=== PATIENT | female | born 1970 | race Caucasian/White ===

== ENCOUNTER 2016-08-06 17:58 | Inpatient (IN) | payer BC ==
[~2016-08-06] VITALS: Ht 160 cm; Wt 63.5 kg
[2016-08-06 18:00] VITALS: PULSE 92; RESP 19; TEMP 98.2; O2SAT 99
--- NOTE | 2016-08-06 18:00 | NUR ---
BROUGHT BACK TO BED #6 AND TRIAGED. REPORT GIVEN TO FABIÁN
--- NOTE | 2016-08-06 18:31 | NUR ---
ER at bedside examining patient.
--- NOTE | 2016-08-06 18:31 | NUR ---
Placed in room 6 . Placed on monitoring manager, blood pressure machine and pulse oximeter. To gown for exam. Side rails up.
--- NOTE | 2016-08-06 18:35 | NUR ---
pt brought to ED by her daughter,pt fell this morning 3am hit her back of head on tiles. pt has multiple fall recently. pt on pain management. pt is awake,alert,oriented x4.no neuro deficit.c/o head pain and back pain.no resp distress,skin warm intact.will continue monitor patients.
--- NOTE | 2016-08-06 18:47 | NUR ---
# 20 gauge angiocath placed to left hand. Use of asceptic technique. Opsite placed over site. Blood return noted. . Flushed with 10 cc of normal saline. No evidence of infiltration noted. Patient tolerated well.
--- NOTE | 2016-08-06 19:08 | NUR ---
report given to night patrol inspector agnieszka CASTRO
--- NOTE | 2016-08-06 19:23 | NUR ---
Received patient alert and oriented x 2-3 with periods of forgetfulness. Daughter at bedside. Denies pain or discomfort at this time. Breathing even and unlabored. No acute distress or SOB noted. Will continue to monitor.
[2016-08-06 19:32] LABS: BASOPHILS % (AUTO) 0.7 % (0.0-2.0); EOSINOPHILS # (AUTO) 0.3 K/uL (0.0-0.4); EOSINOPHILS % (AUTO) 5.1 % (0.0-4.0); HEMATOCRIT 40.3 % (36-48); HEMOGLOBIN 13.2 g/dL (12.0-16.0); LYMPHOCYTES # (AUTO) 1.8 K/uL (1.0-5.5); LYMPHOCYTES % (AUTO) 27.7 % (20.5-51.5); MEAN CORPUSCULAR HEMOGLOBIN 35 pg (27-31); MEAN CORPUSCULAR HGB CONC 33 % (32-36); MEAN CORPUSCULAR VOLUME 106 fL (79.0-98.0); MONOCYTES # (AUTO) 0.5 K/uL (0.0-1.0); MONOCYTES % (AUTO) 7.5 % (1.7-9.3); NEUTROPHILS # (AUTO) 3.8 K/uL (1.8-7.7); PLATELET COUNT (AUTO) 142 K/uL (130-430); RED BLOOD CELL COUNT(AUTO) 3.79 MIL/uL (4.2-6.2); RED CELL DISTRIBUTION WIDTH 12.7 % (9.0-15.0); WHITE BLOOD COUNT (AUTO) 6.4 K/uL (4.8-10.8)
[2016-08-06 19:34] LABS: CALCIUM 8.2 mg/dL (8.4-11.0); CREATININE 0.75 mg/dL (0.55-1.30)
[2016-08-06 19:38] LABS: POTASSIUM 2.7 mmol/L (3.5-5.1)
[2016-08-06 19:40] LABS: INR 1.2 (0.8-1.2); PROTHROMBIN TIME 13.1 SECS (9.5-12.5); TOTAL BILIRUBIN 0.6 mg/dL (0.0-1.0)
[2016-08-06 19:41] LABS: ALBUMIN 3.4 g/dL (3.4-4.8); TOTAL PROTEIN, SERUM 6.5 g/dL (6.4-8.3)
[2016-08-06 20:04] LABS: BENZODIAZEPINE, URINE POSITIVE (NEG <=150); URINE OXYCODONE SCREEN POSITIVE (NEG <=100)
[2016-08-06 20:05] LABS: BARBITURATE, URINE NEGATIVE (NEG <=200); CANNABINOID, URINE NEGATIVE (NEG <=50); COCAINE, URINE NEGATIVE (NEG <=150); METHAMPHETAMINES SCREEN,URINE NEGATIVE (NEG <=500); OPIATE, URINE NEGATIVE (NEG <=100); PHENCYCLIDINE SCREEN,URINE NEGATIVE (NEG <=25); UR TRICYCLIC ANTIDEPRESSANTS NEGATIVE (NEG <=300); URINE AMPHETAMINE NEGATIVE (NEG <=500); URINE METHADONE NEGATIVE (NEG <=200); URINE PROPOXYPHENE SCREEN NEGATIVE (NEG <=300)
[2016-08-06] MEDS ORDERED: KCL 40mEq in D5/0.45NS 1000 mL 1,000 ML IV ONE (21:30)
[2016-08-06] MEDS ORDERED: ZOLOFT PO (22:05)
[2016-08-06] MEDS ORDERED: CYMBALTA PO (22:05)
[2016-08-06] MEDS ORDERED: LANS30CA10 PO (22:06)
[2016-08-06] MEDS ORDERED: ONDA4TAB5 PO (22:07)
[2016-08-06] MEDS ORDERED: [UNRECOGNIZED DRUG - CODE] PO (22:07)
[2016-08-06] MEDS ORDERED: MULT PO (22:08)
[2016-08-06] MEDS ORDERED: CHOL500037 PO (22:08)
[2016-08-06] MEDS ORDERED: KCL 40 mEq in 100 mL (PREMIX) 100 ML IV ONE (23:15)
[2016-08-06] MEDS: D5/0.45 NS 1,000 ML IV SCH (23:15)
--- NOTE | 2016-08-06 23:30 | NUR ---
Patient will be admitted under the care of Dr. Thao. Admitted to Telemetry unit. Will go to room 121A. Belongings list completed. Summary report printed. Report will given to GLORIA Lucero at bedside.
--- NOTE | 2016-08-06 23:35 | NUR ---
INITIAL NOTES -Pt arrived from ER dept via a gurney assisting by Alisson-Nurse to room 121-A,inpatient telemetry. Daughter and son are with her. -Pt is a/o3,episode of forgetfulness. Pt is c/o throbbing pain 10 out 10 of head radiating to left side of body s/p fall at home. IVF D5 1/2NS + 40 MEq KLC infusing. IV site of left f/a #20,patent,no s/s any infiltration noted. Generalized weakness noted. Discussed poc, all safety measures, also instructed not to get out bed to use call light for assistance, pt verbalized understanding. Skin intact. Left side of body redness noted. Seizure precaution in place. Fall precaution in place. Bed alarm in place, low position, side rails x3. Places near Nurses' station. Call light /win reach. Continue to monitor pt.
--- NOTE | 2016-08-06 23:35 | NUR ---
ADMISSION NOTE Received patient from ER via gurney. Patient admitted with diagnosis of . Patient is awake, alert, oriented X 2-3. Patient oriented to hospital room, call light, toileting, pain management and safety-teach back done. Patient informed that Jazmine will be her nurse and that their room number is 121A. Personal belongings checked and Belongings List documented. Call light within reach.
[2016-08-06 23:36] VITALS: BP 128/73; PULSE 78; RESP 18; TEMP 98.2; O2SAT 99
--- NOTE | 2016-08-06 23:47 | NUR ---
CONSULTATION PAGED REASON FOR CONSULTATION:ABD WAS CONSULT CALLED?Y PERSON WHO WAS NOTIFIED:MAG CONSULTING PHYSICIAN:WONG GUILLAUME SPANISH LANGUAGE LECTURER SPECIALTY:GI SPANISH LANGUAGE LECTURER PHONE NUMBER:[phone]
--- NOTE | 2016-08-06 23:49 | NUR ---
CONSULTATION PAGED REASON FOR CONSULTATION:ALTERED MENTAL STATUS WAS CONSULT CALLED?Y PERSON WHO WAS NOTIFIED:CARMEN CONSULTING PHYSICIAN:ISMA SPENCER (ELA CHAMBERS VETERINARIAN POULTRY) TURNER AND FORMER AUTOMATIC SPECIALTY:NEURO TURNER AND FORMER AUTOMATIC PHONE NUMBER:[phone]
[2016-08-07 00:08] VITALS: BP_SYST 128; BP_DIAS 73; BP_DIAS 77; PULSE 78; PULSE 89; RESP 18; RESP 20; TEMP 103.2; TEMP 98.2; O2SAT 97; O2SAT 99
[2016-08-07] MEDS: traMADol HCL HCL 50 MG TABLET (ULTRAM) PO PRN ×4 (00:37→20:59)
--- NOTE | 2016-08-07 00:37 | NUR ---
PAIN MEDICATION GIVEN -Pt is c/o 10 out 10 throbbing pain of headache radiating to left side of body s/p fall. Gave Ultram 50mg po. See EMAR for pain reassessment. Call light /win reach. Continue to monitor pt.
--- NOTE | 2016-08-07 00:38 | NUR ---
CONSULTATION PAGED REASON FOR CONSULTATION:STATUS POST FALL WAS CONSULT CALLED?Y PERSON WHO WAS NOTIFIED:CARMEN CONSULTING PHYSICIAN:SHAWN SAENZ (JESUS CASTANO WOODWORKING MACHINE OFFBEARER) CERTIFIED WELDER SPECIALTY:ORTHO CERTIFIED WELDER PHONE NUMBER:[phone]
[2016-08-07] MEDS: KCL 20 mEq in 100 mL (PREMIX) 100 ML IV SCH ×3 (00:49→02:30)
--- NOTE | 2016-08-07 01:06 | NUR ---
,N IS AT BEDSIDE -Notified Dr. Thao regarding pt is c/o blurred vision, throbbing 10 out 10 pain of headache radiating to left side of body s/p fall. Dr. Thao stated,''I already ordered Dr. Aguilera for consult.''
[2016-08-07] MEDS ORDERED: ONDANSETRON HCL 4 MG/2 ML VIAL IVP PRN (01:15)
--- NOTE | 2016-08-07 01:37 | NUR ---
ROUNDS; Pt is resting. No s/s any pain,sob,or any acute distress. K-Darius infusing. No s/s any IV infiltration noted. Bed alarm in place, low position, side rails x3. Call light w/in reach. Continue to monitor pt.
[2016-08-07 04:46] VITALS: BP 100/65; PULSE 73; RESP 18; TEMP 98.3; O2SAT 100
--- NOTE | 2016-08-07 04:52 | NUR ---
ROUNDS; Pt is resting. Pt denies any pain,sob,or any acute distress. K-Darius is still infusing. No s/s any IV infiltration noted. Bed alarm in place, low position, side rails x3. Call light w/in reach. Continue to monitor pt.
--- NOTE | 2016-08-07 06:46 | NUR ---
CLOSING NOTES -Pt is resting in bed. No s/s any pain,sob,or any acute distress noted. IVF D5 1/2NS + 40 MEq KLC infusing. IV site of left f/a #20,patent,no s/s any infiltration noted. . Seizure precaution in place. No seizure activity noted entire shift. Fall precaution in place. Bed alarm in place, low position, side rails x3. Places near Nurses' station. Call light /win reach. Will endorse to oncoming nurse to continue care.
[2016-08-07 07:03] LABS: BASOPHILS % (AUTO) 0.5 % (0.0-2.0); EOSINOPHILS # (AUTO) 0.6 K/uL (0.0-0.4); EOSINOPHILS % (AUTO) 12.2 % (0.0-4.0); HEMATOCRIT 37.4 % (36-48); HEMOGLOBIN 12.3 g/dL (12.0-16.0); LYMPHOCYTES # (AUTO) 1.6 K/uL (1.0-5.5); LYMPHOCYTES % (AUTO) 30.8 % (20.5-51.5); MEAN CORPUSCULAR HEMOGLOBIN 35 pg (27-31); MEAN CORPUSCULAR HGB CONC 33 % (32-36); MEAN CORPUSCULAR VOLUME 106 fL (79.0-98.0); MONOCYTES # (AUTO) 0.5 K/uL (0.0-1.0); MONOCYTES % (AUTO) 10.1 % (1.7-9.3); NEUTROPHILS # (AUTO) 2.6 K/uL (1.8-7.7); NEUTROPHILS % (AUTO) 46.4 % (40.0-70.0); PLATELET COUNT (AUTO) 120 K/uL (130-430); RED BLOOD CELL COUNT(AUTO) 3.54 MIL/uL (4.2-6.2); RED CELL DISTRIBUTION WIDTH 12.8 % (9.0-15.0); WHITE BLOOD COUNT (AUTO) 5.3 K/uL (4.8-10.8)
[2016-08-07 07:04] LABS: CALCIUM 8.1 mg/dL (8.4-11.0); CREATININE 0.69 mg/dL (0.55-1.30); POTASSIUM 3.3 mmol/L (3.5-5.1)
--- NOTE | 2016-08-07 07:10 | NUR ---
SLEEPING RESPIRATIONS EVEN/UNLABORED...WILL CONT TO MONITOR
--- NOTE | 2016-08-07 08:54 | NUR ---
DR RUSSELL AT BEDSIDE Addendum: 08/07/16 at 1038 by Freda Cary LVN DR ALBERTO AT [facility], NOT [facility]
[2016-08-07] MEDS: D5/0.45 NS 1,000 ML IV SCH (09:00)
[2016-08-07] MEDS ORDERED: cefTRIAXone 1 GM VIAL IV SCH (09:00)
--- NOTE | 2016-08-07 09:06 | NUR ---
Nutrition Update Chandu Scale 15 noted. Pt admitted for altered mental status. Diet: clear liquid BMI: 24.8 kg/m2 RD to follow per nutrition care standards.
--- NOTE | 2016-08-07 09:09 | NUR ---
PT SITTING UP IN BED, TOLERATING CLEAR LIQUIDS
[2016-08-07] MEDS: CEFTRIAXONE SOD 1 GM/ D5W 50 ML IV SCH ×2 (09:23)
[2016-08-07] MEDS ORDERED: levETIRAcetam 500 MG TABLET PO ONE (09:30)
[2016-08-07 09:43] LABS: THYROID STIMULATING HORMONE 1.49 uIu/mL (0.34-4.82)
--- NOTE | 2016-08-07 10:35 | NUR ---
ASSISTED PT TO RESTROOM PT AMBULATED TO RESTROOM...PT A BIT UNSTEADY WHEN AMBULATING
--- NOTE | 2016-08-07 10:37 | NUR ---
DR BLANK AT BEDSIDE
--- NOTE | 2016-08-07 10:59 | NUR ---
RECEIVED ORDERS FROM DR PERSON FOR EGD, PT, PTT, INR, HCG, AND TO BE NPO...PT DOES NOT WANT EGD... WILL PAGE DR PERSON TO INFORM HIM OF PTS REFUSAL...WILL NOT ENTER ORDERS UNTIL DR PERSON INFORMED OF REFUSAL
--- NOTE | 2016-08-07 12:01 | NUR ---
PT REFUSED UPPER GI SERIES
--- NOTE | 2016-08-07 12:02 | NUR ---
ASSISTED PT TO RESTROOM
--- NOTE | 2016-08-07 12:25 | NUR ---
DR REMY HU..PT JUST INFORMED MILL HELPER THAT SHE IS CLAUSTROPHOBIC
--- NOTE | 2016-08-07 12:30 | NUR ---
DR BLANK PAGED PT REQUESTING PAIN MEDICATION, PRIOR TO MRI
--- NOTE | 2016-08-07 12:35 | NUR ---
DR ALBERTO CALLED BACK GAVE ATIVAN IVP X1 PRIOR TO MRI
[2016-08-07 12:36] VITALS: BP 96/58; PULSE 65; RESP 16; TEMP 98.3; O2SAT 100
[2016-08-07] MEDS ORDERED: LORazepam 2 MG/ML VIAL IVP ONE (12:45)
[2016-08-07] MEDS ORDERED: GADOPENTETATE DIMEGLUMINE 15 ML VIAL IV ONE (12:55)
--- NOTE | 2016-08-07 13:12 | NUR ---
TRANSPORTED TO MRI VIA
--- NOTE | 2016-08-07 14:13 | NUR ---
PT BACK FROM MRI PT BACK IN BED...FAMILY AT BEDSIDE...WILL CONT TO MONITOR
--- NOTE | 2016-08-07 15:24 | NUR ---
DR PERSON AT BEDSIDE
[2016-08-07 16:11] VITALS: BP 118/75; PULSE 54; RESP 16; TEMP 97.6; O2SAT 100
[2016-08-07 16:30] LABS: HCG,QUANTITATIVE 0 mIU/ML (0-6); LIPASE 33 U/L (73-393)
--- NOTE | 2016-08-07 18:00 | NUR ---
ASSISTED PT TO RESTROOM
--- NOTE | 2016-08-07 18:21 | NUR ---
RESTING PT WITH EYES CLOSED...FRIEND AT BEDSIDE...PT NPO FOR ULTRASOUND LATER THIS EVENING...WILL CONT TO MONITOR
[2016-08-07 18:45] VITALS: BP 116/70; PULSE 58; RESP 16; TEMP 97.4; O2SAT 100
--- NOTE | 2016-08-07 18:45 | NUR ---
NOTES RECEIVED THE PT FROM THE DAY NURSE ,PT AWAKEN BY THE SEPTIC TANK SERVICE TECHNICIAN.WILL DO THE ULTRASOUND NOW IN THE ROOM.,MONITOR IN PLACE AND SHOWS SR IV INTACT TO LT AC.NO REDNESS OR SWELLING NOTED.PT ALERTX3 FORGETFUL AT TIMES,CALL LIGHT WITHIN REACH,SAFETY MEASURES IN PROGRESS.CONTINUE TO MONITOR.
--- NOTE | 2016-08-07 19:51 | NUR ---
NOTES ASSISTED UP TO THE BATHROOM,UA SENT TO THE LAB.
[2016-08-07 20:14] LABS: BILIRUBIN,URINE NEGATIVE (NEGATIVE); BLOOD, URINE NEGATIVE (NEGATIVE); CLARITY/URINE CLEAR (CLEAR); COLOR,URINE YELLOW (YELLOW); GLUCOSE,URINE NEGATIVE (NEGATIVE); KETONES,URINE NEGATIVE (NEGATIVE); LEUKOCYTE ESTERASE ,URINE NEGATIVE (NEGATIVE); NITRITE, URINE NEGATIVE (NEGATIVE); PH,URINE 7.5 (5.0-8.0); PROTEIN URINE NEGATIVE (NEGATIVE); UROBILINOGEN,URINE 0.2 (0.2-1.0)
[2016-08-07 20:28] LABS: BACTERIA,URINE FEW /HPF (None Seen); MUCUS,URINE None Seen /LPF (None Seen); RBC,URINE NONE SEEN /HPF (0-3)
--- NOTE | 2016-08-07 20:36 | NUR ---
NOTES PT C/O BACK PAIN ,WILL MEDICATE ORDERED.
--- NOTE | 2016-08-07 20:37 | NUR ---
NOTES SEIZURE PADS FALLING OFF THE BED,NEW PADS APPLIED.NO SEIZURE ACTIVITY NOTED.
[2016-08-07] MEDS: levETIRAcetam 500 MG TABLET PO SCH (20:58)
--- NOTE | 2016-08-07 21:45 | NUR ---
NOTES PT RESTING WITH EYES CLOSED.CALL LIGHT WITHIN REACH.CONTINUE TO MONITOR.
--- NOTE | 2016-08-07 23:13 | NUR ---
AWAKE ALERT ASKING FOR A SLEEPING PILL ,CALL PLACED TO DR SWEET.
--- NOTE | 2016-08-07 23:18 | NUR ---
NOTES DR BLANK WAS CALLED WHO IS TAKING CARE OF THE PT.
[2016-08-07 23:58] VITALS: BP 118/79; PULSE 60; RESP 18; TEMP 98.2; O2SAT 98
[2016-08-08] MEDS ORDERED: ZOLPIDEM TARTRATE 5 MG TABLET PO ONE (00:21)
--- NOTE | 2016-08-08 01:16 | NUR ---
NOTES PT SLEEPING,NO DISTRESS NOTED.CONTINUE TO MONITOR.
[2016-08-08] MEDS: D5/0.45 NS 1,000 ML IV SCH ×3 (03:00→22:20)
--- NOTE | 2016-08-08 03:30 | NUR ---
REMAINS ASLEEP.CONTINUE TO MONITOR.
[2016-08-08 04:16] VITALS: BP 107/73; PULSE 57; RESP 18; TEMP 98; O2SAT 99
--- NOTE | 2016-08-08 04:58 | NUR ---
BLOOD DRAWN BY THE HAIR ASSISTANT.
--- NOTE | 2016-08-08 05:38 | NUR ---
NOTES PT REMAINS ASLEEP.NO DISTRESS NOTED,CALL LIGHT WITHIN REACH.CONTINUE TO MONITOR.
--- NOTE | 2016-08-08 06:03 | NUR ---
CLOSING NOTES PT RESTING WITH EYES CLOSED.WILL ENDORSE THE CARE OF THE PT TO THE DAY NURSE.
--- NOTE | 2016-08-08 06:30 | NUR ---
nrsg: NRSG: RECEIVED PATIENT FROM NIGHT JOSEP LEE, AWAKE,ALERT AND ORIENTED X4. RESPIRATION EVEN AND UNLABORED. LUNGS CLEAR BILATERAL. ABDOMEN SOFT WITH BOWEL X 4 QUADRANTS. REMAINS NPO FOR TEST . NO PAIN AT THIS TIME. IV SITE ON ANTECUBITAL INTACT AND INPLACED AND IVF ON PROGRESS. NO S/S OF INFILTRATION. ON HER SIDE AND CALL LIGHT WITHIN REACH.
[2016-08-08 06:49] LABS: ALBUMIN 2.7 g/dL (3.4-4.8); BILIRUBIN,DIRECT 0.3 mg/dL (0.0-0.3); TOTAL BILIRUBIN 0.8 mg/dL (0.0-1.0); TOTAL PROTEIN, SERUM 5.3 g/dL (6.4-8.3)
--- NOTE | 2016-08-08 07:30 | NUR ---
RADIOLOGY: GAVE A CALL REGARDING UGI WITH GASTROGRAFFIN -STATED DOES NOT NEED A CONSENT BUT SHOULD BE NPO. WILL CALL AGAIN WHEN THE TEST TO BE DONE.
--- NOTE | 2016-08-08 07:40 | NUR ---
: GAVE A CALL TO DR. BLANK REGARDING IV MEDS. SINCE PATIENT IS NPO. WAITING FOR THE RETURN CALL.
[2016-08-08 08:00] VITALS: BP 116/70; PULSE 59; RESP 18; TEMP 97.7; O2SAT 99
--- NOTE | 2016-08-08 08:00 | NUR ---
ROUNDS: SEEN BY DR. GOSS.
--- NOTE | 2016-08-08 08:07 | NUR ---
UGI: WENT FOR UGI WITH GASTROGRAFFIN BY WHEELCHAIR, ACCOMPANIED BY TECH.
[2016-08-08] MEDS ORDERED: GASTROGRAFIN 120 ML ONE (08:41)
--- NOTE | 2016-08-08 09:30 | NUR ---
POST TEST; [place] [facility] [place] ,CLEAR LIQUIDS OFFERED.
[2016-08-08] MEDS: levETIRAcetam 500 MG TABLET PO SCH ×2 (09:38→21:44)
[2016-08-08] MEDS: PANTOPRAZOLE SODIUM 40 MG TAB PO SCH (09:39)
[2016-08-08] MEDS: traMADol HCL HCL 50 MG TABLET (ULTRAM) PO PRN ×3 (09:40→21:45)
[2016-08-08] MEDS: CEFTRIAXONE SOD 1 GM/ D5W 50 ML IV SCH ×4 (10:01→10:02)
--- NOTE | 2016-08-08 10:04 | NUR ---
BRP: ASSISTED TO TOILET ,GAIT STEADY AND BACK TO BED AFTER.. CALL LIGHT WITHIN REACH.
--- NOTE | 2016-08-08 10:54 | NUR ---
MST: PATIENT DOWNGRADE FROM TELE TO MED/SURG. ORDERED.
[2016-08-08] MEDS ORDERED: LORazepam 1 MG TABLET PO PRN (11:00)
[2016-08-08 12:00] VITALS: BP 104/67; PULSE 60; RESP 21; TEMP 98.3; O2SAT 100
--- NOTE | 2016-08-08 12:00 | NUR ---
ACTIVITY: RESTING ON BED AND WATCHING TV. SON AT THE BEDSIDE AND UPDATED. CALL LIGHT WITHIN REACH. NO PAIN.
--- NOTE | 2016-08-08 14:30 | NUR ---
MRI: CRIPPLE CUTTER CALLED AND SAID TO DO THE MRI THAT WAS NOT DONE FROM YESTERDAY AND SHE WILL DO IT TODAY BUT PATIENT NEEDS IV MEDS,. TO MAKE HER RELAX AND DR. BLANK WAS PAGED. WAITING FOR THE RETURN CALL.
--- NOTE | 2016-08-08 14:45 | NUR ---
MRI: CREDIT REVIEW ANALYST (AJ) CALLED AND SAID SHE WILL DO THE MRI.
--- NOTE | 2016-08-08 15:18 | NUR ---
Dr Jose olmos
--- NOTE | 2016-08-08 15:22 | NUR ---
IV: INSERTED ANOTHER SITE OF IV ON THE RIGHT FOREARM GAUGE 22 INTACT AND INPLACED AND IVF CONNECTED.
--- NOTE | 2016-08-08 15:30 | NUR ---
ROUNDS: SEEN BY DR. BLANK AND REMINDED REGARDING IV MEDS. ORDER PRIOR TO MRI.
[2016-08-08 15:36] VITALS: BP 108/74; PULSE 61; RESP 19; TEMP 97.3; O2SAT 100
--- NOTE | 2016-08-08 16:00 | NUR ---
: DR. BLANK WAS REMINDED AGAIN 2-3 TIMES WHILE IN NURSES STATION BUT STILL DID NOT ORDER .
--- NOTE | 2016-08-08 16:40 | NUR ---
: DR. BLANK REMINDED AGAIN ABOUT IV MEDS PRIOR TO MRI , NO ORDER STILL.
--- NOTE | 2016-08-08 18:50 | NUR ---
CLOSING: RESTING ON BED WITH IVF ON PROGRESS. IV SITE INTACT AND INPLACED AND NO S/S OF INFILTRATION,AWKEAND ALERT. NO SZ ACTIVITY.
[2016-08-08 20:00] VITALS: BP 125/79; PULSE 62; RESP 16; TEMP 99; O2SAT 100
--- NOTE | 2016-08-08 20:00 | NUR ---
Rounds Received patient lying in bed resting, denies of any pain, no acute distress noted. IV site intact and patent, IV fluid infusing well. Instructed patient to call nurse when getting out of bed, call light within reach. family at the bedside.
--- NOTE | 2016-08-08 21:54 | NUR ---
PAGED PAGED MARIANNA HA AT [phone] SPOKE WITH DAVID.
[2016-08-08] MEDS: ZOLPIDEM TARTRATE 5 MG TABLET PO PRN (22:16)
--- NOTE | 2016-08-08 22:45 | NUR ---
Rounds CLINICAL NURSING PROFESSOR assisted patient to go to the bathroom and back to bed with supervise assistance unsteady gait noted. Pain medication given earlier with effective result noted.
[2016-08-09] VITALS: BP 123/77; PULSE 54; RESP 18; TEMP 98.1; O2SAT 97
[2016-08-09 00:01] VITALS: BP_SYST 107; BP_SYST 94; BP_DIAS 59; BP_DIAS 71; PULSE 56; RESP 16; TEMP 100; O2SAT 100
--- NOTE | 2016-08-09 00:45 | NUR ---
Rounds Patient resting quietly, no s/s of any pain, no acute distress noted, call light within reach.
--- NOTE | 2016-08-09 01:24 | NUR ---
CONSULTATION FOLLOW-UP REASON FOR CONSULTATION:S/P FALL WAS CONSULT CALLED?Y PERSON WHO WAS NOTIFIED:MEE CONSULTING PHYSICIAN:SHAWN SAENZ(JOAQUINA HERRERA JAW SKINNER) MELANGEUR OPERATOR SPECIALTY:ORTHOPEDIC SURGEON MELANGEUR OPERATOR PHONE NUMBER:[phone]
--- NOTE | 2016-08-09 02:50 | NUR ---
Rounds Patient resting quietly, no s/s of any pain, no acute distress noted, call light within reach.
[2016-08-09] MEDS: traMADol HCL HCL 50 MG TABLET (ULTRAM) PO PRN ×4 (03:14→21:38)
--- NOTE | 2016-08-09 04:23 | NUR ---
Rounds Patient resting quietly, no s/s of any pain, no acute distress noted, call light within reach.
--- NOTE | 2016-08-09 06:41 | NUR ---
Closing notes No other changes noted on patient current condition. No seizure activity noted.
--- NOTE | 2016-08-09 08:00 | NUR ---
initial notes rec patient awake alert, no periods of confusion at this time. ivf infusing well on the r forearm. no infiltration noted.denies pain at this time.bed in low position and side rails up and locked.call light within reached and knows when to call for assists.with direct observer in the room to prevent form falling.
[2016-08-09 08:01] VITALS: BP 117/73; PULSE 54; RESP 16; TEMP 96.7; O2SAT 100
[2016-08-09] MEDS: CEFTRIAXONE SOD 1 GM/ D5W 50 ML IV SCH ×2 (08:59)
[2016-08-09] MEDS: PANTOPRAZOLE SODIUM 40 MG TAB PO SCH (09:05)
[2016-08-09] MEDS: levETIRAcetam 500 MG TABLET PO SCH ×2 (09:05→21:38)
--- NOTE | 2016-08-09 10:00 | NUR ---
rounds due meds given as ordered and pain med. ambulates to the br at intervals with min assits and lillie well. sleeps at intervals as well.
[2016-08-09 11:56] VITALS: BP 107/66; PULSE 54; RESP 16; TEMP 98; O2SAT 98
--- NOTE | 2016-08-09 12:00 | NUR ---
rounds eating lunch and lillie well. no sob noted.
--- NOTE | 2016-08-09 14:00 | NUR ---
round patient sitting at the edge of the bed. no acute distress noted. calls for assistance to the br. no acute distress.
[2016-08-09 14:12] VITALS: Ht 160 cm; Wt 63.5 kg
[2016-08-09] MEDS: D5/0.45 NS 1,000 ML IV SCH (15:28)
[2016-08-09 16:00] VITALS: BP 120/82; PULSE 60; RESP 20; TEMP 98; O2SAT 100
--- NOTE | 2016-08-09 16:00 | NUR ---
rounds resting comfortably otherwise goes to the br and voiding freely. no acute distress.
--- NOTE | 2016-08-09 18:30 | NUR ---
closing notes denies pain at this time. family at bedside . stable needs attended. no sob noted. call light with reached.
[2016-08-09 19:10] VITALS: BP 112/76; PULSE 67; RESP 20; TEMP 98.9; O2SAT 99
--- NOTE | 2016-08-09 19:10 | NUR ---
Initial Notes Received pt in bed with mother at bedside. Pt is a/a/o x4. No s/s of any distress noted. IV noted to R f/a g 22, no infiltrate and with good blood return. Noted heat pad that patient brought from home at pt's back. All extremities are strong, BRP. Discussed plan of care with pt and verbalized understanding. Bed in low position with call light within reach. Will cont to monitor.
--- NOTE | 2016-08-09 21:10 | NUR ---
Rounds Pt is resting comfortably with mother at bedside. No s/s of any distress noted. Call light within reach. Will cont to monitor.
[2016-08-09] MEDS: ZOLPIDEM TARTRATE 5 MG TABLET PO PRN (21:38)
--- NOTE | 2016-08-09 23:10 | NUR ---
Rounds Patient is comfortably resting at this time. No s/s of any distress noted. Bed in low position with call light within reach. Will cont to monitor.
--- NOTE | 2016-08-10 01:10 | NUR ---
Assisted to b/r assisted to b/r and safely back to bed. No s/s of any distress noted. Left bed in low position with call light within reach. Will cont to monitor.
[2016-08-10] MEDS: traMADol HCL HCL 50 MG TABLET (ULTRAM) PO PRN ×3 (03:27→21:55)
[2016-08-10 04:00] VITALS: BP 111/73; PULSE 50; RESP 16; TEMP 97.4; O2SAT 100
--- NOTE | 2016-08-10 06:54 | NUR ---
Final Rounds Patient is resting at this time. No s/s of any pain noted. V/S are wnl. All needs met and anticipated by noc nurses. Bed in low position with side rails up x2 for safety. Endorsed
[2016-08-10 08:00] VITALS: BP 103/74; PULSE 55; RESP 21; TEMP 98; O2SAT 99
--- NOTE | 2016-08-10 08:00 | NUR ---
rounds rec patient awake alert with ivf infusing well on the r forearm . no infiltration noted. denies pain at this time.was moved to a different room bec unable to stand the noise form her current room. ambulates to the br and lillie well. bed in low position and side rails up and locked. fall/ safety measures reminded and understood. will continue to monitor patient.
[2016-08-10] MEDS: PANTOPRAZOLE SODIUM 40 MG TAB PO SCH (09:47)
[2016-08-10] MEDS: levETIRAcetam 500 MG TABLET PO SCH ×2 (09:47→21:55)
[2016-08-10] MEDS: CEFTRIAXONE SOD 1 GM/ D5W 50 ML IV SCH ×2 (09:47)
--- NOTE | 2016-08-10 10:00 | NUR ---
rounds asleep when rounds made. resting quietly. no sob noted.
--- NOTE | 2016-08-10 12:00 | NUR ---
rounds dr medrano came and dr benjamin and changed pt's diet. lillie full liquid . no nausea and vomiting noted.
[2016-08-10 12:34] VITALS: BP 103/69; PULSE 54; RESP 16; TEMP 98.6; O2SAT 98
--- NOTE | 2016-08-10 14:00 | NUR ---
rounds dr johnston was called and informed esbl of the urine and with orders.
[2016-08-10 16:39] VITALS: BP 106/63; PULSE 58; RESP 16; TEMP 98.8; O2SAT 98
[2016-08-10] MEDS: D5/0.45 NS 1,000 ML IV SCH ×2 (17:24→22:52)
[2016-08-10] MEDS: GENTAMICIN 120 MG/ ISO-OSM 100 ML PREMIX IV SCH (17:26)
--- NOTE | 2016-08-10 18:30 | NUR ---
closing notes pt ambulating at bedside and stated feel much better. no sob noted.
[2016-08-10 20:00] VITALS: BP 110/64; PULSE 52; RESP 16; TEMP 98.8; O2SAT 98
--- NOTE | 2016-08-10 20:12 | NUR ---
Rounds Received patient lying in bed resting, denies of any pain, no acute distress noted, no nausea or vomiting noted. IV site checked intact and patent, IV fluid infusing well. Instructed patient to call nurse when getting out of bed call light within reach.
--- NOTE | 2016-08-10 22:00 | NUR ---
Activity Patient ambulate in the hallway assisted by her Son with sightly steady gait noted.
--- NOTE | 2016-08-10 22:10 | NUR ---
Rounds Patient back to bed. Instructed patient to call nurse when need to go to the bathroom, call light within reach. bed alarm on.
[2016-08-10] MEDS: ZOLPIDEM TARTRATE 5 MG TABLET PO PRN (22:53)
[2016-08-11 01:15] VITALS: BP 91/56; PULSE 60; RESP 18; TEMP 97.6; O2SAT 98
--- NOTE | 2016-08-11 01:30 | NUR ---
Rounds Patient resting quietly call light within reach.
[2016-08-11] MEDS: traMADol HCL HCL 50 MG TABLET (ULTRAM) PO PRN ×4 (02:11→20:30)
[2016-08-11] MEDS: GENTAMICIN 120 MG/ ISO-OSM 100 ML PREMIX IV SCH ×2 (04:03→16:22)
[2016-08-11 04:36] VITALS: BP 85/51; PULSE 56; RESP 19; TEMP 96.8; O2SAT 99
--- NOTE | 2016-08-11 04:41 | NUR ---
CONSULT FOLLOW UP CALLED FOR FOLLOW UP CONSULT DOCTOR MONICA IS ONLINE JOURNALIST FOR [facility]. SPOKE WITH CARMEN. NOTIFIED THIS IS THE THIRD CALL.
--- NOTE | 2016-08-11 04:42 | NUR ---
Rounds Patient resting quietly call light within reach.
[2016-08-11 06:41] LABS: LYMPHOCYTES # (AUTO) 1.7 K/uL (1.0-5.5)
--- NOTE | 2016-08-11 06:49 | NUR ---
Closing notes Patient slept most of the night, no other changes noted on patient current condition.
[2016-08-11 06:58] LABS: ALBUMIN 2.6 g/dL (3.4-4.8); CALCIUM 8.1 mg/dL (8.4-11.0); CREATININE 0.68 mg/dL (0.55-1.30); POTASSIUM 3.3 mmol/L (3.5-5.1); TOTAL BILIRUBIN 0.4 mg/dL (0.0-1.0); TOTAL PROTEIN, SERUM 5.4 g/dL (6.4-8.3)
[2016-08-11 07:03] LABS: BASOPHILS % (AUTO) 0.7 % (0.0-2.0); EOSINOPHILS # (AUTO) 0.5 K/uL (0.0-0.4); EOSINOPHILS % (AUTO) 10.8 % (0.0-4.0); HEMATOCRIT 36.4 % (36-48); LYMPHOCYTES % (AUTO) 34.6 % (20.5-51.5); MEAN CORPUSCULAR HEMOGLOBIN 35 pg (27-31); MEAN CORPUSCULAR HGB CONC 33 % (32-36); MEAN CORPUSCULAR VOLUME 105 fL (79.0-98.0); MONOCYTES # (AUTO) 0.5 K/uL (0.0-1.0); MONOCYTES % (AUTO) 10.4 % (1.7-9.3); NEUTROPHILS # (AUTO) 2.1 K/uL (1.8-7.7); NEUTROPHILS % (AUTO) 43.5 % (40.0-70.0); PLATELET COUNT (AUTO) 102 K/uL (130-430); RED BLOOD CELL COUNT(AUTO) 3.46 MIL/uL (4.2-6.2); RED CELL DISTRIBUTION WIDTH 12.4 % (9.0-15.0); WHITE BLOOD COUNT (AUTO) 4.8 K/uL (4.8-10.8)
[2016-08-11 08:00] VITALS: BP 93/68; PULSE 62; RESP 18; TEMP 97.6; O2SAT 99
[2016-08-11] MEDS: PANTOPRAZOLE SODIUM 40 MG TAB PO SCH (08:50)
[2016-08-11] MEDS: levETIRAcetam 500 MG TABLET PO SCH ×2 (08:50→20:29)
[2016-08-11] MEDS: CEFTRIAXONE SOD 1 GM/ D5W 50 ML IV SCH ×2 (08:51)
[2016-08-11 09:01] LABS: ERYTHROCYTE SEDIMENTATION RATE 3 MM/HR (0-20)
[2016-08-11 11:41] VITALS: BP 104/74; PULSE 80; RESP 18; TEMP 97.2; O2SAT 98
--- NOTE | 2016-08-11 13:36 | NUR ---
DC PLANNING Discussed dc planning w Dr Garcia earlier today, states to order PT eval that may need SNF. Called [facility] PPO, ph [phone] opt6 dept per Tra Notes, to speak prince dowell to get list of contracted SNF's, home health, ambulance. Per [facility] client care representative Lia is assigned nurse cannot give me her # she would need to call me to give her ph #. Will put in note for Lia to return my call. Addendum: 08/11/16 at 1419 by Jackie Navarro RN Received msg from [facility] that Missy is assigned, ph [phone]. Called & spoke prince Louis informed plan for SNF vs Home Health, states will fax list of contracted SNF's & Home Health.
[2016-08-11 16:41] VITALS: BP 104/63; PULSE 56; RESP 18; TEMP 97.3; O2SAT 99
--- NOTE | 2016-08-11 19:48 | NUR ---
OPENING NOTE Pt. and bedside report received from day shift nurse. Pt. is AAO x 4 and resting in bed with daughter, Mikaela at bedside. IV fluids infusing as ordered to right f/a 22g, slight bruising noted but no other s/s of infiltration noted to site. Pt. requested jello. Plan of care and safety precautions discussed with pt., pt. requested for bed alarm to be off at this time so she can "rest her bottom" while her daughter is here. Encouraged pt. to use call light for needs. Also encouraged pt.'s daughter to call when pt. is back in bed resting. Seizure pads in place. Will continue to monitor.
[2016-08-11 19:58] VITALS: BP 98/60; PULSE 58; RESP 16; TEMP 97; O2SAT 100
[2016-08-11] MEDS: D5/0.45 NS 1,000 ML IV SCH (20:29)
--- NOTE | 2016-08-11 20:32 | NUR ---
DUE MEDS/PAIN/NAUSEA Due Keppra administered as ordered. Pt. c/o "08/30" pain to hip and back and nausea. Pt. medicated with Ultram PO and Zofran IVP as ordered PRN for moderate pain and nausea. Please see EMAR. Educated pt. regarding medication and s/e. Encouraged pt. to use call light for assistance. Bed alarm on. Will continue to monitor. Addendum: 08/11/16 at 2046 by Angela Julian RN DUE MEDS/PAIN/NAUSEA Due Keppra administered as ordered. Pt. c/o "12/30" pain to hip and back and nausea. Pt. medicated with Ultram PO and Zofran IVP as ordered PRN for *severe* pain and nausea. Please see EMAR. Educated pt. regarding medication and s/e. Encouraged pt. to use call light for assistance. Bed alarm on. Will continue to monitor.
[2016-08-12] MEDS: D5/0.45 NS 1,000 ML IV SCH ×2 (00:02→15:57)
[2016-08-12] MEDS: traMADol HCL HCL 50 MG TABLET (ULTRAM) PO PRN ×6 (00:37→22:55)
--- NOTE | 2016-08-12 00:38 | NUR ---
PAIN Pt. c/o pain "12/30" to lower back. Pt. given Ultram 50mg PO 1 tab as ordered PRN for severe pain. Educated pt. regarding medication and s/e. Pt. verbalized understanding. Encouraged pt. to use call light for needs. Bed alarm on. Will continue to monitor.
[2016-08-12 01:24] VITALS: BP 106/82; PULSE 62; RESP 18; TEMP 98.1; O2SAT 99
[2016-08-12 04:00] VITALS: BP 82/52; PULSE 86; RESP 18; TEMP 97.1; O2SAT 100
[2016-08-12] MEDS: GENTAMICIN 120 MG/ ISO-OSM 100 ML PREMIX IV SCH ×2 (05:06→15:56)
[2016-08-12 08:00] VITALS: BP 90/59; PULSE 77; RESP 17; TEMP 97.4; O2SAT 100
--- NOTE | 2016-08-12 08:00 | NUR ---
OPENING NOTE: RECEIVED REPORT FROM NIGHT NURSE. PATIENT IS RESTING COMFORTABLY IN BED. NO S/S OF DISTRESS OR SOB. PATIENT IS ALERT AND ORIENTED. VITAL SIGNS WNL, ASSESSMENT COMPLETE. IV IS PATENT AND INFUSING. CALL LIGHT IN REACH, BED IN LOWEST POSITION, AND WILL CONTINUE TO MONITOR.
[2016-08-12] MEDS: PANTOPRAZOLE SODIUM 40 MG TAB PO SCH (09:00)
[2016-08-12] MEDS: levETIRAcetam 500 MG TABLET PO SCH ×2 (09:00→21:48)
[2016-08-12] MEDS: CEFTRIAXONE SOD 1 GM/ D5W 50 ML IV SCH ×2 (09:03)
--- NOTE | 2016-08-12 10:00 | NUR ---
NOTE: PATIENT IS RESTING COMFORTABLY IN BED. NO S/S OF DISTRESS OR SOB. PATIENT IS ALERT AND ORIENTED. PATIENT HAS BEEN AMBULATING TO THE BATHROOM. CALL LIGHT IN REACH, BED IN LOWEST POSITION, AND WILL CONTINUE TO MONITOR.
[2016-08-12 11:38] VITALS: BP 96/58; PULSE 72; RESP 18; TEMP 97; O2SAT 100
--- NOTE | 2016-08-12 12:00 | NUR ---
NOTE: PATIENT IS RESTING COMFORTABLY IN BED. NO S/S OF DISTRESS OR SOB. PATIENT IS ALERT AND ORIENTED, ABLE TO EXPRESS NEEDS, AND ASK FOR ASSISTANCE. CALL LIGHT IN REACH, BED IN LOWEST POSITION, AND WILL CONTINUE TO MONITOR.
--- NOTE | 2016-08-12 14:00 | NUR ---
NOTE: PATIENT IS RESTING COMFORTABLY IN BED. NO S/S OF DISTRESS OR SOB. PATIENT PAIN HAS BEEN CONTROLLED WITH ULTRAM. PATIENT STATES PAIN MANAGEMENT IS WORKING. IV IS PATENT. CALL LIGHT IN REACH, BED IN LOWEST POSITION, AND WILL CONTINUE TO MONITOR.
--- NOTE | 2016-08-12 14:52 | NUR ---
Nutrition F/U Admitting Diagnosis Altered mental status Reviewed Pertinent Medical/Surgical Hx Patient Medical Record Medical History Comment: Pt also found w/ Syncope, possible seizures, unsteady gait; PMH: Gastric bypass. Subjective Information Pt seen resting in bed at time of RD visit. Pt reported that she is still only able to tolerate gelatin, cranberry juice, and water. She stated that she still has come N/V, but no D. Per MD notes, plans to continue IV Abx treatment. Per EMR, PO Intakes: 43% average x7 meals, x2 refusals. Active bowel sounds. I/O: 1690/0 (+1690 ml) per 12 hours. Pt is not yet meeting optimal nutritional needs. Pt declined nutrition education. Current Diet Order/Nutrition Support Clear liquid x5 days Patient/Significant Other Able To Verbalize Education Provided Not Indicated Pertinent Medications gentamicin/NaCl IV, zofran, D5%/NaCl IV at 60 ml/hr (245 kcal/day) Pertinent Labs Albumin 2.6 L, Serum Total Protein 5.4 L, RBC 3.46 L Height (Feet) 5 feet Height (Inches) 3.00 inches Weight (Pounds) 140 pounds (admission) BEDSCALE WT: 123.6 lb, 56 kg (08/12/16) -- RD calibrated bedscale to zero prior to weighing pt Weight (Calculated Kilograms) 63.883416 kilograms Patient Weight 63.503 kg Body Mass Index 24.80 kg/m2 Usual Weight 150 lbs %UBW 93 %IBW 122 [place]/Adjusted Body Weight 115 lbs, 52 kg Recent Weight Change Yes - 10 lbs in 1 week (per Pt report) Weight Status Appropriate Gastrointestinal Symptoms N/V Last BM August 12, 2016 x1 Usual Diet At Home Gelatin, water, and rice pudding (per pt since July 2015 Gastric bypass) Skin Integrity Comment: Chandu scale of 20. per nursing notes. Current % PO Negligible <25% Estimated Energy Expenditure (kcals/day) 1806-1263 kcal/day (25-30 kcal/kg CBW for maintenance) Estimated Protein Required (g/day) 64-96 gm Protein/day (1-1.5 gm Protein for muscle gain) Estimated Fluid Required (l/day) 1.6-1.9 L/day (1L/calorie for maintenance) Problem/Etiology/Signs/Symptoms (modified) Increased risk for malnutrition related to GI dysfunction as evidenced by Pt report of poor appetite, emesis after meals and diarrhea, and continual poor PO intakes. *ongoing Expected Outcomes/Goals Monitor pt appetite and food intake w/ goal of meeting 75% of estimated nutritional needs, Labs trending WNL, normal GI function, skin integrity/wt maintenance. Dietitian Recommendations * Recommend continuing clear liquid diet per MD * Consider TPN support if PO intakes do not improve within 7 days Follow Up High Risk: F/U in 2-3 days
--- NOTE | 2016-08-12 16:10 | NUR ---
PHYSICAL THERAPY CO-SIGN The Physical Therapy Progress Notes documented by Lang Interpreter have been reviewed. Reviewed/Co-Signed by: Gisselle Vasquez PT Documentation Done by: ELA DONALD PTA PT CONTINUES TO MAKE FUNCTIONAL GAINS TO REHAB GOALS SET. Addendum: 08/12/16 at 1611 by Gisselle Vasquez PT Amended: Links added.
[2016-08-12 17:30] VITALS: BP 98/55; PULSE 70; RESP 18; TEMP 97.1; O2SAT 99
--- NOTE | 2016-08-12 18:46 | NUR ---
CLOSING NOTE: PATIENT IS RESTING COMFORTABLY IN BED. NO S/S OF DISTRESS OR SOB. PATIENT IS ALERT AND ORIENTED, ABLE TO EXPRESS NEEDS, AND ASK FOR ASSISTANCE. CALL LIGHT IN REACH, BED IN LOWEST POSITION, AND WILL GIVE REPORT TO NIGHT NURSE.
--- NOTE | 2016-08-12 19:41 | NUR ---
OPENING NOTE Pt. is AAO x 4 and resting in bed. Assisted pt. to bathroom to void; pt.'s gait is steady with no c/o dizziness. IV fluids infusing as ordered to left f/a 22g. Pt.'s bed alarm went off and I had to remind pt. to use call light before getting OOB and pt. stated "sorry I forgot, they were letting me walk around earlier today." Plan of care discussed. Safety, fall, and isolation precautions in place. Encouraged pt. to use call light for needs. Will continue to monitor.
[2016-08-12 20:00] VITALS: BP 98/59; PULSE 78; RESP 18; TEMP 97.5; O2SAT 95
[2016-08-12] MEDS: ZOLPIDEM TARTRATE 5 MG TABLET PO PRN (22:54)
[2016-08-13] VITALS (7 sets, daily range): BP systolic 87–108; BP diastolic 57–79; PULSE 65–80; RESP 16–20; TEMP 96.4–98.2; O2SAT 91–100
--- NOTE | 2016-08-13 02:54 | NUR ---
ASSISTED TO BATHROOM Assisted pt. to bathroom to void; tolerated well with steady gait, no c/o dizziness. Will continue to monitor.
[2016-08-13] MEDS: GENTAMICIN 120 MG/ ISO-OSM 100 ML PREMIX IV SCH (03:00)
[2016-08-13] MEDS: traMADol HCL HCL 50 MG TABLET (ULTRAM) PO PRN ×2 (03:01→09:26)
--- NOTE | 2016-08-13 03:03 | NUR ---
PAIN Pt. c/o "12/30" pain; medicated with Ultram PO as ordered PRN for severe pain. See EMAR. Educated pt. re: med and s/e. Safety precautions in place. Will continue to monitor.
[2016-08-13] MEDS: D5/0.45 NS 1,000 ML IV SCH (04:47)
--- NOTE | 2016-08-13 07:51 | NUR ---
CLOSING NOTE All needs met throughout shift. Pt. is stable with no s/s of acute distress. Endorsed care to day shift nurse.
--- NOTE | 2016-08-13 08:00 | NUR ---
OPENING NOTE: RECEIVED REPORT FROM NIGHT NURSE. PATIENT IS RESTING COMFORTABLY IN BED. NO S/S OF DISTRESS OR SOB. PATIENT IS AWAKE AND ALERT. IV IS PATENT AND INFUSING. VITAL SIGNS WNL, ASSESSMENT COMPLETE. ISOLATION PRECAUTIONS IN PLACE. CALL LIGHT IN REACH, BED IN LOWEST POSITION, BED ALARM IS ON, AND WILL CONTINUE TO MONITOR.
[2016-08-13] MEDS: CEFTRIAXONE SOD 1 GM/ D5W 50 ML IV SCH ×2 (09:25)
[2016-08-13] MEDS: levETIRAcetam 500 MG TABLET PO SCH (09:26)
[2016-08-13] MEDS: PANTOPRAZOLE SODIUM 40 MG TAB PO SCH (09:26)
--- NOTE | 2016-08-13 10:00 | NUR ---
NOTE: PATIENT IS RESTING COMFORTABLY IN BED. NO S/S OF DISTRESS OR SOB. PATIENT IS ALERT AND ORIENTED. IV IS PATENT. PATIENT AMBULATED. CALL LIGHT IN REACH, BED IN LOWEST POSITION, AND WILL CONTINUE TO MONITOR.
--- NOTE | 2016-08-13 10:03 | NUR ---
DISCHARGE PLANNING Contracted [facility]F list: [facility], [facility], [facility], [facility], [facility], [facility], [facility]. Contracted home health: [facility], [facility], [facility]
--- NOTE | 2016-08-13 12:00 | NUR ---
Note: Patient is resting comfortably in bed. No s/s of distress or sob. Patient is alert and oriented, able to express needs, and ask for assistance. Call light in reach, bed in lowest position, and will continue to monitor.
--- NOTE | 2016-08-13 14:00 | NUR ---
Note: Patient is resting comfortably in bed. No s/s of distress or sob. Patient's daughter, Mikaela, was called to inform of discharge order. Patient is alert and oriented. Call light in reach, bed in lowest position, and will continue to monitor.
--- NOTE | 2016-08-13 15:24 | NUR ---
PHYSICAL THERAPY CO-SIGN The Physical Therapy Progress Notes documented by Regional Business Manager have been reviewed. Reviewed/Co-Signed by: Christy Keith,PT Documentation Done by: Kan Hooks PTA I concur with the documentation of this DIRECTOR OF BLOOD. Plan: continue PT as per plan of care. Addendum: 08/13/16 at 1526 by Christy Keith PT Amended: Links added.
== END 2016-08-13 16:20 | disposition home or self-care (01) | DRG 178 ==
LOC: SED 17:58 → STU 23:07 → SMU 08-08 21:53
PROVIDERS: ADMIT Internal Medicine Infectious Disease; ATTEND Internal Medicine Hospice and Palliative Medicine
DX: J69.0 Pneumonitis due to inhalation of food and vomit (principal); N39.0 Urinary tract infection, site not specified; R55 Syncope and collapse; G40.909 Epilepsy, unspecified, not intractable, without status epilepticus; M19.90 Unspecified osteoarthritis, unspecified site; M81.0 Age-related osteoporosis without current pathological fracture; M54.9 Dorsalgia, unspecified; G89.29 Other chronic pain; R10.13 Epigastric pain; E86.9 Volume depletion, unspecified; B96.20 Unspecified Escherichia coli [E. coli] as the cause of diseases classified elsewhere; D75.89 Other specified diseases of blood and blood-forming organs; F29 Unspecified psychosis not due to a substance or known physiological condition; R27.0 Ataxia, unspecified; G43.909 Migraine, unspecified, not intractable, without status migrainosus; D46.9 Myelodysplastic syndrome, unspecified; G47.00 Insomnia, unspecified; W01.0XXA Fall on same level from slipping, tripping and stumbling without subsequent striking against object, initial encounter; Y93.89 Activity, other specified; Y92.091 Bathroom in other non-institutional residence as the place of occurrence of the external cause; Y99.8 Other external cause status; Z91.14 Patient's other noncompliance with medication regimen; Z91.048 Other nonmedicinal substance allergy status; Z91.81 History of falling; Z90.49 Acquired absence of other specified parts of digestive tract; Z88.6 Allergy status to analgesic agent; Z83.3 Family history of diabetes mellitus; Z87.891 Personal history of nicotine dependence; Z98.84 Bariatric surgery status
CPT/HCPCS: 36415; 70450-TC; 70553; 71010; 72141; 72146; 72148; 74240-TC; 76700-TC; 80048; 80053; 80076; 80170-TC; 80307; 81000-TC; 82550-TC; 82565-TC; 82607; 82746; 83690-TC; 83735-TC; 83921; 84443-TC; 84484; 84702-TC; 84703; 85025; 85610-TC; 85651-TC; 85730-TC; 87086; 87186-TC; 93005; 97110-GP; 97116-GP; 97530-GP; 99285; A9579; G0482; J0696; J1580; J2060; J2405; J3480; J7042; J7050; J7060; Q9963